=== PATIENT | male | born 1970 | race Caucasian/White ===

== ENCOUNTER → 2017-07-12 | Outpatient (CLI) | payer BC ==
--- NOTE | 2017-07-12 16:37 | PCVCIMAG ---
APPROVED REPORT Exam: Stress Echocardiogram Indication: Elevated Calcium score, strong fam hx early CAD, HLP, obesity Patient Location: Echo lab Stress Nurse: Cecy Holt RN Status: routine Ht: 6 ft 4 in HR: 73 bpm BP: 140/80 mmHg Rhythm: NSR w bigeminy PVCs Procedure The patient underwent an Exercise Stress Test using the Phil Protocol. Blood pressure, heart rate, and EKG were monitored. An Echocardiogram was performed by injection molding technician in four stages in quad fashion. At peak stress, four selected images were obtained and placed side by side with resting images for comparison. Stress Test Details Stress Test: Exercise stress testing was performed using a Phil protocol. HR Resting HR: 73 bpmMax Heart Rate (APMHR): 173 bpm Max HR Achieved: 173 bpmTarget HR (85% APMHR): 147 bpm % of APMHR: 100 Recovery HR: 97 bpm HR response to stress: Normal HR response to stress BP Resting BP: 140/80 mmHg Max BP: 214/96 mmHg Recovery BP: 184/94 mmHg ECG Resting ECG: Sinus Rhythm with bigeminy PVCs Stress ECG: Sinus Rhythm ST Change: Normal Arrhythmia: rare isolated PVC with exertion Recovery ECG: Sinus Rhythm Recovery ST Change: Normal Recovery Arrhythmia: None Clinical Reason for Termination: Maximal effort Stress Symptoms: Dyspnea Exercise duration: 10 min 50 sec Highest Stage Achieved: Stage 4: 4.2 mph at 16% grade. Exercise capacity: 13.7 METs Overall Exercise Capacity for Age: Good Angina Score: None Pre-Stress Echo The resting Echocardiogram showed normal left ventricular contractility with an estimated Ejection Fraction of about >55%. Normal wall motion in all segments on baseline images. Post-Stress Echo The stress Echocardiogram showed normal left ventricular contractility with an estimated Ejection Fraction of about 65%. Normal augmentation of wall motion in all segments on post stress images. Clinical No clinical or ECG evidence for ischemia. Conclusion Clinical Response: Non-ischemic Exercise Capacity: Average Stress ECG Response: Non-ischemic Stress Echo Images: Non-ischemic The left ventricle is normal in size and wall thickness in both the rest and stress images. Other Information Study Quality: Adequate Technically limited study due to body habitus, images improved post exercise. <Conclusion> The left ventricle is normal in size and wall thickness in both the rest and stress images.
== END | disposition home or self-care (01) ==
LOC: PCVCIMAG 15:07
PROVIDERS: ATTEND Internal Medicine Cardiovascular Disease
DX: I25.9 Chronic ischemic heart disease, unspecified (principal); E83.59 Other disorders of calcium metabolism; E78.5 Hyperlipidemia, unspecified; Z82.49 Family history of ischemic heart disease and other diseases of the circulatory system
CPT/HCPCS: 93325; 93351

== ENCOUNTER → 2019-07-10 | Outpatient (CLI) | payer SELFPAY ==
--- NOTE | 2019-07-10 17:34 | PCVCIMAG ---
APPROVED REPORT Study performed: 07/10/2019 16:00:53 Exam: Stress Echocardiogram Indication: CAD , Hyperlipidemia,elevated cor Ca+ Patient Location: Echo lab Stress Nurse: Cecy Holt RN Room #: 2 Status: routine Ht: 6 ft 4 in HR: 62 bpm BP: 132/86 mmHg Rhythm: NSR Medical History Medical History: CAD non obstructive, Hyperlipidemia Cardiac Risk Factors: FHX of CAD Previous Cardiac Procedures: none Pretest Chest Pain Characteristics: No chest pain Procedure The patient underwent an Exercise Stress Test using the Phil Protocol. Blood pressure, heart rate, and EKG were monitored. An Echocardiogram was performed by nurse technician in four stages in quad fashion. At peak stress, four selected images were obtained and placed side by side with resting images for comparison. Stress Test Details Stress Test: Exercise stress testing was performed using a Phil protocol. HR Resting HR: 62 bpmMax Heart Rate (APMHR): 171 bpm Max HR Achieved: 160 bpmTarget HR (85% APMHR): 145 bpm % of APMHR: 93 Recovery HR: 93 bpm HR response to stress: Normal HR response to stress BP Resting BP: 132/86 mmHg Max BP: 240/120 mmHg Recovery BP: 168/100 mmHg BP response to stress: Abnormal hypertensive response to stress. ECG Resting ECG: Sinus Rhythm Stress ECG: Sinus Rhythm, NSSTT changes ST Change: Non-ischemic Maximum ST Deviation: -0.25 mm Arrhythmia: Rare PVCs Recovery ECG: Sinus Rhythm Recovery ST Change: Non-ischemic Recovery ST Deviation: -0.15 mm Recovery Arrhythmia: rare PVC Clinical Reason for Termination: Maximal effort Stress Symptoms: Leg Fatigue Exercise duration: 8 min 16 sec Highest Stage Achieved: Stage 3: 3.4 mph at 14% grade. Exercise capacity: 10.4 METs Overall Exercise Capacity for Age: Average Scale: Sedentary Angina Score: None No complications. Stress ECG Conclusion Garsia Treadmill Score is 9.3 which is Low risk. Pre-Stress Echo The resting Echocardiogram showed normal left ventricular contractility with an estimated Ejection Fraction of about 55-60%. Normal wall motion in all segments on baseline images. Post-Stress Echo The stress Echocardiogram showed normal left ventricular contractility with an estimated Ejection Fraction of about 65-70%. Normal augmentation of wall motion in all segments on post stress images. Clinical No clinical or ECG evidence for ischemia. Conclusion Clinical Response: Non-ischemic Exercise Capacity: Average Stress ECG Response: Non-ischemic Stress Echo Images: Non-ischemic No clinical, EKG or echocardiographic evidence for ischemia. Hypretensive response to exercise. No echocardiographic evidence for exercise induced ischemia. Normal stress echocardiogram with maximal exercise stress. Normal color doppler. No stenosis or regurgitation seen in the mitral,aortic,tricuspid or pulmonic valves. <Conclusion> No clinical, EKG or echocardiographic evidence for ischemia. Hypretensive response to exercise. No echocardiographic evidence for exercise induced ischemia. Normal stress echocardiogram with maximal exercise stress. Normal color doppler. No stenosis or regurgitation seen in the mitral,aortic,tricuspid or pulmonic valves.
== END | disposition home or self-care (01) ==
LOC: PCVCIMAG 16:11
PROVIDERS: ATTEND Internal Medicine Cardiovascular Disease
DX: R93.1 Abnormal findings on diagnostic imaging of heart and coronary circulation (principal); E78.5 Hyperlipidemia, unspecified; Z86.79 Personal history of other diseases of the circulatory system
CPT/HCPCS: 93325; 93351